=== PATIENT | female | born 1950 | race Caucasian/White ===

== ENCOUNTER 2017-07-26 11:20 | Emergency (ER) | payer MEDICARE, OTHER ==
[~2017-07-26] VITALS: Ht 160 cm; Wt 43.1 kg
[~2017-07-26 11:20] MED LIST: ALBUTEROL200 PUFFS/ IH; AMERINET CHOICE1 G1 IV; CEFDINIR 300MG300 MG PO; DIAZEPAM2 M1 PO; DULERA1 AR1 IH; EVISTA60 MG PO; IPRATROPIUM BROM3 M2 IH; LASIX20 MG PO; LEVAQUIN500 MG PO; MOTRIN800 MG PO; MUCINEX ER600 MG PO; PREDNISONE 10MG10 MG PO; PREDNISONE20 MG PO; SALMETEROL-F28 PUFF2 IN; SPIRONOLACTONE25 MG PO; VICODIN 7.5/501 EACH PO
[2017-07-26] MEDS ORDERED: ZITHROMAX Z-PA250 M2 PO (12:25)
--- NOTE | 2017-07-26 12:26 | Emergency Room Report ---
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 N Clinical Suspician of Infection? N Mental Status: 1 - Regular (Normal Baseline) Sepsis Risk:Possible Sepsis Risk Have you (or family members/close friends) recently traveled outside the [place]? N If Yes, where/when: Have you had exposure to infectious disease within the past month? N TB? Other? Specify: 66 years old endstage chronic obstructive pulmonary disease, home oxygen dependent and continues to smoke. She ran out of her Advair Diskus 2 weeks ago, she failed a trial of breo, she is here because of worse soa and yellow productive sputum and requesting abx. she rewfused ABG aware of the side effcts. Source patient, RN notes reviewed, family Exam Limitations no limitations ALLERGIES Coded Allergies: No Known Allergies (10/18/16) Home Medications Active Scripts CEFDINIR (Cefdinir) 300 MG PO BID #14 CAP Prov: 07/09/17 Prednisone (Prednisone 20MG Tab) 20 MG PO DAILY #7 TAB Prov: 07/09/17 Reported Medications Spironolactone (Spironolactone) 25 MG PO DAILY Furosemide (Lasix) 20 MG PO BID IPRATROPIUM/ALBUTEROL SULFATE (Iprat-Albut 0.5-3(2.5) MG/3 Ml) 3 ML IH PRN PRN BREATHING Salmeterol 50/Fluticasone 100 (Advair 100-50 Diskus) 1 PUFF IN BID History Medical History General CAD? No Angina: No ME: No Hypertension? No Hyperlipidemia? No CHF? No DVT? No PE? No COPD? Yes Asthma? Yes Anemia? No GERD? No Gastric ulcers? No GI Bleed? No Hernia? No Thyroid Problems? No Hypothyroidism? No CVA? No Seizures? No Diabetes? No Renal Insuffiency? No End Stage Renal Disease? No UTI? No Stones? No BPH? No GB Disease: No Nephritic Syndrome? No Asplenia? No Hepatitis? No Sickle Cell Disease? No Arthritis? No Migraines? No Cataracts? Yes Glaucoma? No MRSA? No HIV? No TB? No Anxiety? Yes Depression? Yes Cancer? No More? Yes Additional hx: BIPAP AT NIGHT Immunization Hx DT/Tetanus UNKNOWN Flu 2017-18FSN Pneumonia Received In Past Surgical Hx Previous Surgery?Y TUBAL LIGATION Cataract(s) Family History Family Hx Diabetes Yes CAD Yes Hypertension Yes Hyperlipidemia Yes Cancer No TB No Social History Smoking Hx Smoker: Current Every Day Smoker Tobacco: Yes Type Cigarettes Packs/day < 1 Pack Alcohol Alcohol: No Review of Systems All Other Systems Reviewed and Negative Constitutional see HPI Eyes no symptoms reported ENT no symptoms reported. Respiratory see HPI, cough (yellow or productive sputum), shortness of breath Cardiovascular no symptoms reported Gastrointestinal no symptoms reported Genitourinary no symptoms reported. Musculoskeletal no symptoms reported Skin no symptoms reported Psychiatric/Neurological no symptoms reported Physical Exam Vital Signs Vital Signs Date Time Temp Pulse Resp B/P Pulse O2 O2 Flow FiO2 Ox Delivery Rate 07/26 1317 102 18 127/85 99 07/26 1215 91 OXYGEN 3 07/26 1130 98.1 110 20 130/67 88 4 - WBC >12,000 or <4,000 or 10% bands? 2 or more SIRS Criteria Met? B/P:130/67 MAP:88 Creatinine >2.0? UA output<0.5ml/kg/hr for 2 hrs? Platelet count >100,000? Lactate >2.0mmol/1? INR >1.2 or PTT > than 60 sec? Evidence of Organ Dysfunction? Provider documented clinical suspician of infection? N Sepsis Criteria Count: 2 Sepsis Risk: Possible Sepsis Risk General Appearance normal appearance, WD/WN, mild distress Eye Exam - bilateral eye normal exam, bilateral eye PERRL, bilateral eye EOMI Ear, Nose, Throat hearing grossly normal, normal ENT inspection Neck normal inspection, non-tender, supple, full range of motion Respiratory Status Yes: trachea midline, chest symmetrical (increased ap diameter). No: respiratory distress. Lung Sounds bilateral: normal breath sounds, lungs clear. Cardiovascular normal exam, regular rate/rhythm, no peripheral edema, no gallop, no JVD, no murmur, no rub, normal peripheral pulses Peripheral Pulses Pulses normal Yes Gastrointestinal normal bowel sounds, normal exam, non tender, soft, no organomegaly Back normal inspection, no CVA tenderness, no vertebral tenderness Extremities non-tender, normal range of motion, normal inspection, normal capillary refill, trace edema of the RIGHT lower extremity Neurologic alert, recreation facility manager II-XII nml as tested, normal exam, oriented x 3 Reflexes Reflexes normal Yes Skin intact, normal color, warm/dry Medical Decision Making LABS/Meds/Orders Pt receiving controlled substance in ED? No Results/Orders Laboratory Tests 07/26/17 1150: Sodium 127 L, Potassium 4.0, Chloride 86 L, Carbon Dioxide 43 *H, BUN 4 L, Creatinine 0.5 L, Estimated Creat Clear 76, Estimated GFR (MDRD) 124, Glucose 179 H, Calcium 8.7, Total Bilirubin 0.3, AST 11 L, ALT 9 L, Alkaline Phosphatase 99, Creatine Kinase 15 L, CK-MB (CK-2) Rel Index 3.3, CK and CKMB Interp < 0.5, Troponin I < 0.02, Total Protein 7.0, Albumin 2.3 L, Globulin 4.7 H, Albumin/Globulin Ratio 0.5 L, WBC 10.2, RBC 4.00 L, Hgb 11.4 L, Hct 36.6 L, MCV 91.6, RDW 13.2, Plt Count 245, MPV 7.7, Gran % 89.2 H, Gran # 9.1 H, Total Counted 100, Lymphocytes % 5.0 L, Monocytes % 5.3, Eosinophils % 0.2, Basophils % 0.2, Neutrophils 96 H, Lymphocytes (Manual) 1 L, Lymphocytes # 0.5 L, Monocytes (Manual) 3, Monocytes # 0.5, Eosinophils # 0.0, Basophils # 0.0, Platelet Estimate NORMAL, PUBS MCHC 31.2 L, MCH 28.6 Current Medication Orders Sig/Xiomy Start time Last Medication Dose Route Stop Time Status Admin Albuterol/Ipratropium 0 .STK-MED ONE 07/26 1246 DC INH Ceftriaxone Sodium 1 GM ONCE ONE 07/26 1230 DC 07/26 Sodium Chloride 50 ML IV 07/26 1259 1227 Methylprednisolone 125 MG ONCE ONE 07/26 1230 DC 07/26 Sodium Succinate IV 07/26 1231 1227 Ceftriaxone Sodium 0 .STK-MED ONE 07/268 DC IV Methylprednisolone 0 .STK-MED ONE 07/26 1218 DC Sodium Succinate .ROUTE Sodium Chloride 50 ML .STK-MED ONE 11/05 1218 DC IV Albuterol/Ipratropium 0 .STK-MED ONE 07/26 1148 DC INH Orders Procedure Date/time Status RT Aerosol Treatment, Provide 07/26 1340 Active RT Pulse Oximetry, Provide 07/26 1337 Active RT Aerosol Treatment, Provide 07/26 1337 Active DIFFERENTIAL-WBC 07/26 1150 Complete RT REQUEST DUONEB 07/26 1137 Active ARTERIAL BLOOD GAS REQUEST 07/26 1137 Active CHEST(2 VIEWS-NOT PORTABLE) 07/26 1137 Active IV SALINE LOCK 07/26 1137 Active CBC WITH AUTO DIFF 07/26 1137 Complete CARDIAC ENZYMES 07/26 1137 Complete CHEM 12 PROFILE 07/26 1137 Complete XRAY/CT/US XRAY/CT/US XRAY chest XR interpretation by reviewed by me Comment COPD WITH CHRONIC BIBASILAR FIBROSIS, ACUTE INFILTRATES CAN NOT BE EXCLUDED. Departure Departure Time of Disposition 1221 Disposition Against Medical Advice Clinical Impression Primary Impression: Cor pulmonale (chronic) Secondary Impressions: COPD (chronic obstructive pulmonary disease), Left against medical advice, Lung fibrosis, Tobacco abuse Condition STABLE Referrals TIFFANY LIN Additional Instructions tHE PATIENT REFUSED ABG AWARE OF THE RISKS AND BENEFITS, SLAO SHE REFUSED TO BE ADMITTED , CITING THAT SHE CAN GET HOSPICE SERVICE, WHO IS ALSO A SMOKER. The patient reports that she was doing well on her Advair Diskus. She will contact hospice to obtain it again. She refused to be admitted. She requested outpatient antibiotics. It seems that she knows what she wants. She is aware that she is terminally ill and she needs to stop smoking. She will return if needed. SHE AND HER VERBLAIZED UNDERSTANDING. Discharge Counseling Counseled pt/family regarding diagnosis, test results, medications/RX, home care, follow up needs Prescriptions Current Visit Scripts Azithromycin (Zithromax) 250 MG PO DAILY #6 TAB USE DIRECTED. ED Critical Care Critical Care No If Critical Care minutes are documented, the time involved in the performance of seperately reportable procedures was not counted toward critical care time documented. I directly delivered medical care to this critically ill and/or injured patient. Timely evaluation and treatment was necessary to address the significant organ system(s) dysfunction present in this patient. at 1347
[2017-07-26 12:36] LABS: BUN 4 mg/dL (7-18)
[2017-07-26 12:37] LABS: GFR (ESTIMATED) 124 ML/MIN (59-)
[2017-07-26 12:39] LABS: HEMOGLOBIN 11.4 g/dL (12.2-16.2); LYMPH # 0.5 K/mm3 (0.7-4.5)
--- OUTSIDE RECORDS SUMMARY | 2017-07-26 12:53 | External Medical Summary Rpt | Continuity of Care Document ---
Author Author Organization Address Unknown Phone Unavailable Care Team Providers Care English Instructor Name Role Phone , Unavailable Unavailable EMS Current Medications Section EMS Allergies and Adverse Reactions EMS Past Medical History Medications Administered Section EMS Procedures Performed EMS Vital Signs EMS Patient Care Report Narrative -EC-1 was dispatched emergent to [address] [place] [address] for a 66 year old female with difficulty breathing. -When we arrived on scene we were met outside by the patient's who directed us to the kitchen. We found our patient sitting upright in a kitchen table chair. Patient was alert and oriented x4. GCS of 15. Patient had oxygen on via NC @ 2 lpm with approximately 30 feet of tubing. -Patient advised over the last 2-3 days she started to feel sick. She couldn't give me a definite answer to her specific problem but just that she felt "yucky ". Patient denied chest pain, fever, vomiting, chills but she did report minor nausea from time to time. Patient advised when she woke up this morning she felt short of air and decided she wanted to be taken to the hospital for evaluation. Patient's 02 saturation in the house was 79% and her heart rate was 126. -Patient advised she had taken an Albuterol treatment this morning and it had helped but her symptoms but they had come back again. -Patient's skin was hot to the touch and dry. Lung sounds revealed rhonci in both the left and right lower lobes and wheezing in both the left and right upper lobes. -We brought the stretcher in next to the patient. Placed patient on oxygen via NC at 4 lpm. Stood patient up, turned patient and sat her on stretcher. Family presented a MOST form to ems crew. Loaded patient in the truck. -Baseline vitals: Blood pressure 130/72, Heart rate 130, Respirations 20, Spo2 89% on NC, Temp 99.9 and Glucose 137. Patient placed on the bus driver/monitor which showed a sinus rhythm, no abnormalities, no ectopy. -Patient was placed on Duoneb 3mg/0.5 mg nebulizer treatment. IV access was attempted in the left forearm with a 20 gauge saline lock and was successful. -Went in route non emergent to [facility]. -Patient was monitored in route with vitals and bus driver/monitor. Patient stated that the nebulizer treatment was helping as Patient's Spo2 levels increased and she stated she could breath easier. Patient's overall condition improved. -Patient's vitals upon arrival: Blood pressure: 106/55, Heart rate 126, Respirations 20, Spo2 97% on neb treatment. Patient's skin warm. Lung sounds revealed rhonci in the right and left lower lobe but wheezing had resolved in lower lobes. -Patient was transported in the avendano's position with the stretcher rails in the upright position and all seatbelts in place. -Arrived at hospital and took patient inside to awaiting room. Transferred patient from stretcher to hospital bed via sheet x3 crew. Report was given to staff and signatures were obtained. Care turned over to CANT GANG SAWYERUMANG Pierson RN Patient was transported due to an acute illness to include difficulty breathing that requires oxygen/medication administration. Chance Watkins EMT-P [id number]
--- OUTSIDE RECORDS SUMMARY | 2017-07-26 12:53 | External Medical Summary Rpt | Continuity of Care Document ---
Author Author Organization Address Unknown Phone Unavailable Care Team Providers Care Retail Services Professional Name Role Phone , Unavailable Unavailable EMS Current Medications Section EMS Allergies and Adverse Reactions EMS Past Medical History Medications Administered Section EMS Procedures Performed EMS Vital Signs EMS Patient Care Report Narrative -EC-1 was dispatched emergent to [address] [place] [address] for a 66 year old female with [...] and Glucose 137. Patient placed on the sap administrator which showed a sinus rhythm, no abnormalities, no ectopy. -Patient was placed on Duoneb 3mg/0.5 mg nebulizer treatment. IV access was attempted in the left forearm with a 20 gauge saline lock and was successful. -Went in route non emergent to [facility]. -Patient was monitored in route with vitals and sap administrator. Patient stated that the nebulizer treatment was [...] signatures were obtained. Care turned over to CREATIVE TECHNOLOGISTUMANG Pierson RN Patient was transported due to an acute illness to include difficulty breathing that requires oxygen/medication administration. Chance Watkins EMT-P [id number]
--- OUTSIDE RECORDS SUMMARY | 2017-07-26 12:54 | External Medical Summary Rpt | Continuity of Care Document ---
Author Author Organization Address Unknown Phone Unavailable Care Team Providers Care Milling Machine Operator Name Role Phone , Unavailable Unavailable EMS Current Medications Section EMS Allergies and Adverse Reactions EMS Past Medical History Medications Administered Section EMS Procedures Performed EMS Vital Signs EMS Patient Care Report Narrative -EC-1 was dispatched emergent to [address] [place] [address] for a 66 year old female with [...] and Glucose 137. Patient placed on the cardiac catheterization technologist which showed a sinus rhythm, no abnormalities, no ectopy. -Patient was placed on Duoneb 3mg/0.5 mg nebulizer treatment. IV access was attempted in the left forearm with a 20 gauge saline lock and was successful. -Went in route non emergent to [facility]. -Patient was monitored in route with vitals and cardiac catheterization technologist. Patient stated that the nebulizer treatment was [...] signatures were obtained. Care turned over to MANAGER SKILLEDUMANG Pierson RN Patient was transported due to an acute illness to include difficulty breathing that requires oxygen/medication administration. Chance Watkins EMT-P [id number]
--- OUTSIDE RECORDS SUMMARY | 2017-07-26 12:54 | External Medical Summary Rpt | Continuity of Care Document ---
Author Author Organization Address Unknown Phone Unavailable Care Team Providers Care Workers Compensation Adjuster Name Role Phone , Unavailable Unavailable EMS Current Medications Section EMS Allergies and Adverse Reactions EMS Past Medical History Medications Administered Section EMS Procedures Performed EMS Vital Signs EMS Patient Care Report Narrative -EC-1 was dispatched emergent to [address] [place] [address] for a 66 year old female with [...] and Glucose 137. Patient placed on the monitoring manager which showed a sinus rhythm, no abnormalities, no ectopy. -Patient was placed on Duoneb 3mg/0.5 mg nebulizer treatment. IV access was attempted in the left forearm with a 20 gauge saline lock and was successful. -Went in route non emergent to [facility]. -Patient was monitored in route with vitals and monitoring manager. Patient stated that the nebulizer treatment was [...] signatures were obtained. Care turned over to GAS GOLF CART REPAIRERUMANG Pierson RN Patient was transported due to an acute illness to include difficulty breathing that requires oxygen/medication administration. Chance Watkins EMT-P [id number]
--- OUTSIDE RECORDS SUMMARY | 2017-07-26 12:54 | External Medical Summary Rpt | Continuity of Care Document ---
Author Author Organization Address Unknown Phone Unavailable Care Team Providers Care Auto Parker Name Role Phone , Unavailable Unavailable EMS Current Medications Section EMS Allergies and Adverse Reactions EMS Past Medical History Medications Administered Section EMS Procedures Performed EMS Vital Signs EMS Patient Care Report Narrative -EC-1 was dispatched emergent to [address] [place] [address] for a 66 year old female with [...] and Glucose 137. Patient placed on the patient monitor which showed a sinus rhythm, no abnormalities, no ectopy. -Patient was placed on Duoneb 3mg/0.5 mg nebulizer treatment. IV access was attempted in the left forearm with a 20 gauge saline lock and was successful. -Went in route non emergent to [facility]. -Patient was monitored in route with vitals and patient monitor. Patient stated that the nebulizer treatment was [...] signatures were obtained. Care turned over to ASSOCIATE DIRECTOR FINANCEUMANG Pierson RN Patient was transported due to an acute illness to include difficulty breathing that requires oxygen/medication administration. Chance Watkins EMT-P [id number]
--- OUTSIDE RECORDS SUMMARY | 2017-07-26 12:54 | External Medical Summary Rpt | Continuity of Care Document ---
Author Author Organization Address Unknown Phone Unavailable Care Team Providers Care Cytogenetics Technologist Name Role Phone , Unavailable Unavailable EMS Current Medications Section EMS Allergies and Adverse Reactions EMS Past Medical History Medications Administered Section EMS Procedures Performed EMS Vital Signs EMS Patient Care Report Narrative -EC-1 was dispatched emergent to [address] [place] [address] for a 66 year old female with [...] successful. -Went in route non emergent to [facility]. -Patient was monitored in route with vitals [...] signatures were obtained. Care turned over to DOCUMENTATION SUPERVISORUMANG Pierson RN Patient was transported due to an acute illness to include difficulty breathing that requires oxygen/medication administration. Chance Watkins EMT-P [id number]
--- OUTSIDE RECORDS SUMMARY | 2017-07-26 12:56 | External Medical Summary Rpt | CCD ---
Author Author , [facility] Organization [facility] Address Unknown Phone [email or web address] Purpose Continuity of Care Document - 07-07-2017 through 2016 Problems Code Diagnosis DOS Provider Status E87.1 HYPO-OSMOLA LITY AND HYPONATREMI A I27.81 COR PULMONALE (CHRONIC) J18.1 LOBAR PNEUMONIA, UNSPECIFIED ORGANISM J18.9 PNEUMONIA, UNSPECIFIED ORGANISM J44.1 CHRONIC OBSTRUCTIVE PULMONARY DISEASE W (ACUTE) EXACERBATIO N J44.9 CHRONIC OBSTRUCTIVE PULMONARY DISEASE, UNSPECIFIED J96.01 ACUTE RESPIRATORY FAILURE WITH HYPOXIA J96.90 RESPIRATORY FAILURE, UNSP, UNSP W HYPOXIA OR HYPERCAPNIA R74.8 ABNORMAL LEVELS OF OTHER SERUM ENZYMES R79.89 OTHER SPECIFIED ABNORMAL FINDINGS OF BLOOD CHEMISTRY Z53.20 PROC/TRTMT NOT CRD OUT BEC PT DECISION FOR UNSP REASONS Z72.0 TOBACCO USE Results Labs Lab Lab Date Result Refere Interp Status Commen Order Detail nces retati t Range on Cardiac enzymes (07-26-2017 11:50) Serum = 3.3 0-4.0 complet or 017 U/L ed plasma 11:50 creatin e kinase MB (CK-M Serum < 0.5 0.0-3.6 complet or 017 ng/mL ed plasma 11:50 creatin e kinase MB measu Serum = 15 26-192 complet or 017 U/L ed plasma 11:50 creatin e kinase measure m Serum < 0.02 0.00-0. complet or 017 ng/mL 06 ed plasma 11:50 troponi n i.cardi ac measu Comprehensive metabolic panel (07-26-2017 11:50) Serum = 0.5 1.1-1.8 complet or 017 ed plasma 11:50 albumin /globul in mass ra Serum = 2.3 3.4-5.0 complet or 017 gm/dL ed plasma 11:50 albumin measure ment (mas Serum = 99 46-116 complet or 017 U/L ed plasma 11:50 alkalin e phospha tase tony Serum = 0.3 0.2-1.0 complet or 017 mg/dL ed plasma 11:50 total bilirub in measure m Serum = 4 7-18 complet or 017 mg/dL ed plasma 11:50 urea nitroge n measure men Serum = 8.7 8.5-10. complet or 017 mg/dL 1 ed plasma 11:50 calcium measure ment (mas Serum = 86 98-107 complet or 017 mmoL/L ed plasma 11:50 chlorid e measure ment (mo Carbon = 43 21.0-32 complet dioxide 017 mmoL/L .0 ed 11:50 measure ment Comment: NOTIFICATION RESULT Serum = 0.5 0.55-1. complet or 017 mg/dL 02 ed plasma 11:50 creatin ine measure ment ( Estimat = 76 50-200 complet ion of 017 ML/MIN ed creatin 11:50 ine renal clearan ce Estimat = 124 59- complet ed 017 ML/MIN ed glomeru 11:50 lar filtrat ion rate (GF Comment: REFERENCE RANGE: >60 ML/MIN/1.73 SQUARE METERS Comment: If this patient is -Monegasque, then multiply the Comment: result by 1.210. Serum = 4.7 1.3-3.2 complet globuli 017 gm/dL ed n 11:50 measure ment (mass/v olume) Serum = 179 74-106 complet or 017 mg/dL ed plasma 11:50 glucose measure ment (mas Serum = 4.0 3.5-5.1 complet potassi 017 mmoL/L ed um 11:50 measure ment Serum = 127 136-145 complet sodium 017 mmoL/L ed measure 11:50 ment Serum = 11 15-37 complet or 017 U/L ed plasma 11:50 asparta te aminotr ansfera ALT = 9 U/L 12-78 complet (SGPT) 017 ed ser/niesha 11:50 s Protein 11-05-2 = 7.0 6.4-8.2 complet total 017 gm/dL ed ser/niesha 11:50 s Streptococcus pneumoniae automated antibiotic susceptibility test (07-09-2017 06:43) Vancomy 07-09-2 = 0.5 complet kierra 017 ug/ml ed suscept 06:43 ibility test by minimum inhibit ory concent ration Trimeth 07-09-2 <= 10 complet oprim/s 017 ug/ml ed ulfamet 06:43 hoxazol e suscept ibility test by minimum inhibit ory concent ration Levoflo 2 = 1 complet xacin 017 ug/ml ed suscept 06:43 ibility test by minimum inhibit ory concent ration Erythro 07-09-2 <= 0.12 complet mycin 017 ug/ml ed suscept 06:43 ibility test by minimum inhibit ory concent ration Ceftria 07-09-2 <= 0.12 complet xone 017 ug/ml ed suscept 06:43 ibility test by minimum inhibit ory concent ration Clindam 07-09-2 <= 0.25 complet ycin 017 ug/ml ed suscept 06:43 ibility test by minimum inhibit ory concent ration Sputum culture (07-07-2017 12:00) Sputum [id number] complet culture 017 ed 12:00 Strepto coccus pneumon iae SCT STPN STREPTO COCCUS PNEUMON IAE L Sputum PURE complet culture 017 GROWTH ed 12:00 OF STREP PNEUMON IAE. Arterial blood gas (07-07-2017 10:53) Arteria = 40 complet l blood 017 ed total 10:53 oxygen content song Arteria = 44.8 23-27 complet l blood 017 MMOL/L ed carbon 10:53 dioxide , total tony Arteria = 87 % 90-100 complet l blood 017 ed oxygen 10:53 saturat ion calcula Arteria = 49.6 80-100 complet l whole 017 MMHG ed blood 10:53 PO2 at POC Comment: CRITICAL RESULTS Comment: RESULTS CALLED TO: CHERI 07/07/17 1104 Lin Martines Arteria = 7.43 7.35-7. complet l blood 017 MMOL/L 45 ed pH 10:53 measure ment Arteria = 66.7 35.0-45 complet l blood 017 MMHG .0 ed 10:53 partial pressur e of carbo Comment: CRITICAL RESULTS Comment: RESULTS CALLED TO: CHERI 07/07/17 1103 Conrad,Ella Arteria = 42.8 22.0-26 complet l blood 017 MMOL/L .0 ed 10:53 bicarbo aliya measure ment ( Arteria = 18.4 -2.4-+2 complet l blood 017 MMOL/L .3 ed base 10:53 excess determi nation Differential panel, method unspecified - (07-07-2017 10:30) Blood = 100 complet total 017 #CELLS ed cell 10:30 count Neutrop = 72 % 42-76 complet hil 017 ed count 10:30 Platele NORMAL complet t 017 NORMAL ed estimat 10:30 L e Monocyt = 11 % 2-9 complet e % 017 ed 10:30 LYMPH 8 % 10-50 complet 017 ed 10:30 Manual = 1 % 0-3 complet blood 017 ed eosinop 10:30 hils/10 0 leukocy harriet Automat = 8 % 0-8 complet ed 017 ed blood 10:30 band neutrop hil percent a CBC w auto diff (07-07-2017 10:30) Blood = 10.6 4.8-10. complet leukocy 017 K/MM3 8 ed harriet 10:30 count (number /volume ) Automat = 13.2 11.5-17 complet ed 017 % .5 ed erythro 10:30 cyte distrib ution width Red = 4.27 4.2-5.4 complet blood 017 M/mm3 ed cell 10:30 count Blood = 194 142-424 complet platele 017 K/mm3 ed t count 10:30 Automat = 8.8 7.4-10. complet ed 017 fl 4 ed blood 10:30 platele t mean volume tony Bee % = 6.3 % 1.7-9.3 complet 017 ed 10:30 Absolut = 0.7 0.1-1.0 complet e 017 K/mm3 ed monocyt 10:30 e count Automat = 89.2 82.2-97 complet ed 017 fl .8 ed erythro 10:30 cyte mean corpusc ular v Automat = 32.8 31.8-35 complet ed 017 g/dl .4 ed erythro 10:30 cyte mean corpusc ular h Mean = 29.2 27-31.2 complet corpusc 017 pg ed ular 10:30 hemoglo bin (MCH) determ Lymphoc = 5.1 % 10-50.0 complet yte 017 ed count, 10:30 blood, automat ed Absolut = 0.5 0.7-4.5 complet e 017 K/mm3 ed lymphoc 10:30 yte count Blood = 12.5 12.2-16 complet hemoglo 017 g/dL .2 ed bin 10:30 measure ment (mass/v olum Blood = 38.1 37.0-47 complet hematoc 017 % .0 ed rit 10:30 (volume fractio n) Granulo = 87.5 37.0-80 complet cyte 017 % .0 ed percent 10:30 age Blood = 9.2 1.8-7.8 complet granulo 017 K/mm3 ed cytes 10:30 automat ed count (numb Automat = 0.7 % 0.1-12. complet ed 017 0 ed blood 10:30 eosinop hils/10 0 leukocy t Automat = 0.1 0.0-0.4 complet ed 017 K/mm3 ed blood 10:30 eosinop hil count Baso % = 0.4 % 0.1-2.0 complet 017 ed 10:30 Automat = 0.0 0-0.2 complet ed 017 K/MM3 ed blood 10:30 basophi l count (count/ vo Cardiac enzymes (07-07-2017 10:30) Serum < 0.02 0.00-0. complet or 017 ng/mL 06 ed plasma 10:30 troponi n i.cardi ac measu Serum = 31 26-192 complet or 017 U/L ed plasma 10:30 creatin e kinase measure m Serum < 0.5 0.0-3.6 complet or 017 ng/mL ed plasma 10:30 creatin e kinase MB measu Serum = 1.6 0-4.0 complet or 017 U/L ed plasma 10:30 creatin e kinase MB (CK-M Comprehensive metabolic panel (07-07-2017 10:30) Protein = 6.4 6.4-8.2 complet total 017 gm/dL ed ser/niesha 10:30 s ALT = 9 U/L 12-78 complet (SGPT) 017 ed ser/niesha 10:30 s Serum = 14 15-37 complet or 017 U/L ed plasma 10:30 asparta te aminotr ansfera Serum = 118 136-145 complet sodium 017 mmoL/L ed measure 10:30 ment Serum = 4.1 3.5-5.1 complet potassi 017 mmoL/L ed um 10:30 measure ment Serum = 120 74-106 complet or 017 mg/dL ed plasma 10:30 glucose measure ment (mas Serum = 4.1 1.3-3.2 complet globuli 017 gm/dL ed n 10:30 measure ment (mass/v olume) Estimat = 84 59- complet ed 017 ML/MIN ed glomeru 10:30 lar filtrat ion rate (GF Comment: REFERENCE RANGE: >60 ML/MIN/1.73 SQUARE METERS Comment: If this patient is -[place]onegas[place], then multiply the Comment: result by 1.210. Estimat = 83 50-200 complet ion of 017 ML/MIN ed creatin 10:30 ine renal clearan ce Serum = 0.7 0.55-1. complet or 017 mg/dL 02 ed plasma 10:30 creatin ine measure ment ( Carbon = 41 21.0-32 complet dioxide 017 mmoL/L .0 ed 10:30 measure ment Comment: NOTIFICATION RESULT Serum = 75 98-107 complet or 017 mmoL/L ed plasma 10:30 chlorid e measure ment (mo Serum = 8.4 8.5-10. complet or 017 mg/dL 1 ed plasma 10:30 calcium measure ment (mas Serum = 12 7-18 complet or 017 mg/dL ed plasma 10:30 urea nitroge n measure men Serum = 0.5 0.2-1.0 complet or 017 mg/dL ed plasma 10:30 total bilirub in measure m Serum = 97 46-116 complet or 017 U/L ed plasma 10:30 alkalin e phospha tase tony Serum = 2.3 3.4-5.0 complet or 017 gm/dL ed plasma 10:30 albumin measure ment (mas Serum = 0.6 1.1-1.8 complet or 017 ed plasma 10:30 albumin /globul in mass ra Mycoplasma IgM (07-07-2017 10:30) Mycopla NON-JOSEPH NONREAC complet sma IgM 017 CTIVE TIVE ed 10:30 NON-JOSEPH CTIVE L Blood lactic acid measurement (moles/vol (07-07-2017 10:30) Blood = 0.7 0.4-2.0 complet lactic 017 mmol/L ed acid 10:30 measure ment (moles/ vol
--- OUTSIDE RECORDS SUMMARY | 2017-07-26 12:56 | External Medical Summary Rpt | CCD ---
Demographics Preferred Language Armenian Marital Status Unknown Lutheran Affiliation Unknown Race Unknown Ethnic Group Unknown Author Author , [facility] Address Unknown Phone Immunization No patient found.
--- OUTSIDE RECORDS SUMMARY | 2017-07-26 12:56 | External Medical Summary Rpt | CCD ---
Demographics Preferred Language Malagasy Marital Status Unknown Yazidism Affiliation Unknown Race Unknown Ethnic Group Unknown Author Author , [facility] Address Unknown Phone Immunization No patient found.
--- OUTSIDE RECORDS SUMMARY | 2017-07-26 12:56 | External Medical Summary Rpt | CCD ---
Author Author , FOX Organization [facility] Address Unknown Phone [email or web address] Purpose Continuity of Care Document - 07-07-2017 [...] SQUARE METERS Comment: If this patient is -Portuguese, then multiply the Comment: result by 1.210. [...] concent ration Sputum culture (07-07-2017 12:00) Sputum [id number] complet culture 017 ed 12:00 Strepto coccus [...] blood 10:30 platele t mean volume tony [place] % = 6.3 % 1.7-9.3 complet 017 [...] SQUARE METERS Comment: If this patient is -Portuguese, then multiply the Comment: result by 1.210. [...]
[2017-07-26 13:17] VITALS: BP 127/85
[2017-07-26 13:25] LABS: NEUTROPHILS 96 % (42-76)
--- NOTE | 2017-07-26 15:13 | RADIOLOGY REPORT PS360 ---
CHEST(2 VIEWS-NOT PORTABLE) HISTORY: SOA dyspnea cough CHEST(2 VIEWS-NOT PORTABLE) HISTORY: Shortness of air SOA ORDERING PHYSICIAN: Lisseth Lyn MD PATIENT AGE: 66 years COMPARISON: 10/18/2016 FINDINGS: Cardiomegaly with mild pulmonary venous congestion. There is been interval improvement in the interstitial markings/bronchopneumonia. No lobar consolidation or collapse is evident. IMPRESSION: Interval improvement in the prominence of the interstitium which may reflect improvement in interstitial pneumonitis versus acute CHF. There is some mild pulmonary venous congestion at this time. CHEST(2 VIEWS-NOT PORTABLE) HISTORY: Shortness of air SOA ORDERING PHYSICIAN: Lisseth Lyn MD PATIENT AGE: 66 years COMPARISON: 05/29/2012 FINDINGS: The cardiomediastinal silhouette and pulmonary vascularity are within normal limits. There is diffuse coarsening of the bronchovascular markings/interstitial which is worse than when compared to the previous exam along with some patchy alveolar disease in the right lower lobe consistent with bronchopneumonia. There are small bilateral pleural effusions.. No acute bony abnormalities. IMPRESSION: Bronchopneumonia with small bilateral effusions CHEST(2 VIEWS-NOT PORTABLE) CLINICAL INDICATION: SOA ORDERING PHYSICIAN: Lisseth Lyn MD PATIENT AGE: 66 years COMPARISON: 10/19/2016 FINDINGS: PICC line has been inserted via the left upper extremity approach. The tip is in region of superior vena cava. There is mild prominence of the pulmonary vascularity with small bilateral effusions suggesting mild CHF. IMPRESSION: 1. Good placement of PICC line. 2. Mild CHF with small bilateral effusions CHEST(2 VIEWS-NOT PORTABLE) CLINICAL INDICATION: SOA ORDERING PHYSICIAN: Lisseth Lyn MD PATIENT AGE: 66 years COMPARISON: 10/19/2016 FINDINGS: PICC line has been inserted via the left upper extremity approach. The tip is in region of superior vena cava. There is mild prominence of the pulmonary vascularity with small bilateral effusions suggesting mild CHF. IMPRESSION: 1. Good placement of PICC line. 2. Mild CHF with small bilateral effusions Patient Age: 66 years: Female Ordering Physician: Lisseth Lyn MD TECHNIQUE: PA and lateral chest COMPARISON :PA and lateral chest 10/18/2016. Portable chest 10/22/[address] chest from September 2016 utilized FINDINGS Advanced COPD. hyperexpansion with emphysematous changes & and fibrotic changes throughout lung cadet bilaterally. . Bibasilar infiltrates superimposed on chronic changes. Mainly interstitial infiltrate but slightly patchy character as well towards bases Left lung base.: patchy infiltrate along with some vertically oriented atelectasis/scarring retrocardiac region extending to the diaphragm. .. Infiltrate involvingLLL Additional blunting at the left CP angle reflect small pleural effusion along with chronic pleural changes . Right lung base: Mainly interstitial infiltrate but with slight additional patchy infiltrate at periphery of the right lung base... Infiltrate involves right lower lobe obscures the right hemidiaphragm on both frontal and lateral projection.. Likely minimal infiltrate RML as well.. Slight additional blunting right CP angle but may reflect slight additional pleural fluid along with chronic pleural changes.. The lateral film also nicely demonstrates the slight patchy infiltrate throughout lobes which again partially obscures the posterior aspect of the diaphragm. The heart is normal in size. The slightly generous left barbara appears stable unchanged. Right barbara and mediastinal structures unremarkable. . IMPRESSION: Bibasilar pneumonia Small bilateral pleural effusions Findings superimposed upon chronic changes. Prominent COPD and emphysematous changes dyspnea. Cough.
== END 2017-07-26 13:18 | disposition left against medical advice (07) ==
LOC: ER 11:20
PROVIDERS: Emergency Medicine
DX: I26.09 Other pulmonary embolism with acute cor pulmonale (principal); J44.9 Chronic obstructive pulmonary disease, unspecified; F17.210 Nicotine dependence, cigarettes, uncomplicated